=== PATIENT | female | born 1965 | race Caucasian/White ===

== ENCOUNTER 2019-03-01 10:03 | Emergency (ER) | payer BC ==
[2019-03-01 10:12] VITALS: TEMP 98.2
[2019-03-01] MEDS ORDERED: ONDANSETRON 4 MG/2 ML VIAL IVP STA (10:34)
[2019-03-01] MEDS ORDERED: diphenhydrAMINE 50 MG/ML 1 ML VIAL IVP STA ×2 (10:34→13:11)
[2019-03-01] MEDS ORDERED: SODIUM CHLORIDE 0.9% 2,000 ML IV ONE (10:34)
[2019-03-01] MEDS ORDERED: MAG HYDROX/AL HYDROX/SIMETH 30 ML, HYOSCYAMINE ELIXIR 10 ML, LIDOCAINE VISCOUS 2% 10 ML PO STA ×3 (10:58)
--- NOTE | 2019-03-01 11:18 | ED ---
General Adult HPI - General Chief complaint: Nausea/Vomiting/Diarrhea Stated complaint: vomiting Time Seen by Provider: 03/01/19 10:13 Source: patient, RN notes reviewed Mode of arrival: wheelchair Limitations: no limitations - History of Present Illness Initial comments: 53-year-old female presents emergency Department chief complaint nausea vomiting. Patient states she's had vomiting for last 2 weeks. Patient has extensive history of esophageal cancer with removal and reconstruction along with radiation. Patient states that she would have prognosis a 1 year to live. She states this was given to her 18 months ago. Patient states her oncology physician is out of for low. Patient states that at this point she cannot keep anything down she states she has extreme burning in her stomach and esophagus region. Patient denies fevers chills she does feel weak, run down. She has more pain in her epigastric region than her lower abdomen. She states that she had a hard bowel movement yesterday does not feel distended. Patient denies any sick contacts no fevers chills. - Related Data Previous Rx's Medication Instructions Recorded Metoclopramide [Reglan] 10 mg PO TID PRN #15 tab 03/01/19 Ondansetron Odt [Zofran Odt] 4 mg PO Q8HR PRN #10 tab 03/01/19 Allergies Allergy/AdvReac Type Severity Reaction Status Date / Time No Known Allergies Allergy Verified 03/01/19 10:08 Review of Systems ROS Statement: Those systems with pertinent positive or pertinent negative responses have been documented in the HPI. ROS Other: All systems not noted in ROS Statement are negative. Past Medical History History of Any Multi-Drug Resistant Organisms: None Reported Additional Past Surgical History / Comment(s): Oral surgery for oral cancer Past Psychological History: No Psychological Hx Reported Smoking Status: Never smoker Past Alcohol Use History: None Reported Past Drug Use History: None Reported General Exam Limitations: no limitations General appearance: alert, in no apparent distress Head exam: Present: atraumatic, normocephalic, normal inspection Eye exam: Present: normal appearance, PERRL, EOMI. Absent: scleral icterus, conjunctival injection, periorbital swelling ENT exam: Present: mucous membranes moist, TM's normal bilaterally, normal external ear exam. Absent: normal exam, normal oropharynx (Reconstructive deformities noted) Neck exam: Present: tenderness, full ROM. Absent: normal inspection Respiratory exam: Present: normal lung sounds bilaterally. Absent: respiratory distress, wheezes, rales, rhonchi, stridor Cardiovascular Exam: Present: regular rate, normal rhythm, normal heart sounds. Absent: systolic murmur, diastolic murmur, rubs, gallop, clicks GI/Abdominal exam: Present: soft, tenderness (Moderate epigastric), normal bowel sounds. Absent: distended, guarding, rebound, rigid Back exam: Absent: CVA tenderness (R), CVA tenderness (L) Skin exam: Present: warm, dry, intact, normal color. Absent: rash Course Vital Signs 03/01/19 10:05 Temperature 98.2 F Pulse Rate 105 H Respiratory 20 Rate Blood Pressure 141/91 O2 Sat by Pulse 98 Oximetry EKG Findings - EKG Comments: EKG Findings:: EKG performed at 11:03 normal sinus rhythm there is some T-wave inversions noted needs P2 through V5, rate of 95 SC 146 QRS 82 QTC is QTC 396/497 Medical Decision Making - Medical Decision Making Patient had extensive workup including labs urinalysis, x-rays and CT. Patient son recently dehydrated was hydrated with 2 L of fluid, given antiemetics. Patient had notable 10 mm on his mass. She was updated on these results. I did recommend patient to be admitted for IV hydration, evaluation by ENT, oncology. Patient refuses admission states that she wants to go back to [place] to follow- up with her oncologist there and her reconstructive team. Patient understands risk of leaving at this time including . Return parameters were discussed. - Lab Data Result diagrams: 03/01/19 12:40 03/01/19 12:40 Lab Results 03/01/19 03/01/19 03/01/19 Range/Units 12:28 12:40 12:40 WBC 9.0 (3.8-10.6) k/uL RBC 4.51 (3.80-5.40) m/uL Hgb 15.2 (11.4-16.0) gm/dL Hct 44.7 (34.0-46.0) % MCV 99.2 (80.0-100.0) fL MCH 33.7 (25.0-35.0) pg MCHC 33.9 (31.0-37.0) g/dL RDW 13.5 (11.5-15.5) % Plt Count 101 L (150-450) k/uL Neutrophils % 85 % Lymphocytes % 6 % Monocytes % 7 % Eosinophils % 1 % Basophils % 0 % Neutrophils # 7.6 (1.3-7.7) k/uL Lymphocytes # 0.6 L (1.0-4.8) k/uL Monocytes # 0.6 (0-1.0) k/uL Eosinophils # 0.1 (0-0.7) k/uL Basophils # 0.0 (0-0.2) k/uL Sodium 131 L (137-145) mmol/L Potassium 5.5 H (3.5-5.1) mmol/L Chloride 93 L (98-107) mmol/L Carbon Dioxide 12 L (22-30) mmol/L Anion Gap 26 mmol/L BUN 15 (7-17) mg/dL Creatinine 0.59 (0.52-1.04) mg/dL Est GFR (CKD-EPI)AfAm >90 (>60 ml/min/1.73 sqM) Est GFR (CKD-EPI)NonAf >90 (>60 ml/min/1.73 sqM) Glucose 109 H (74-99) mg/dL Plasma Lactic Acid Robinson (0.7-2.0) mmol/L Calcium 8.4 (8.4-10.2) mg/dL Magnesium 1.4 L (1.6-2.3) mg/dL Total Bilirubin 1.6 H (0.2-1.3) mg/dL AST 94 H (14-36) U/L ALT 68 H (4-34) U/L Alkaline Phosphatase 81 (38-126) U/L Troponin I (0.000-0.034) ng/mL Total Protein 9.4 H (6.3-8.2) g/dL Albumin 5.5 H (3.5-5.0) g/dL Amylase 56 (30-110) U/L Lipase 107 (23-300) U/L Urine Color Yellow Urine Appearance Clear (Clear) Urine pH 5.5 (5.0-8.0) Ur Specific [place] 1.018 (1.001-1.035) Urine Protein 1+ H (Negative) Urine Glucose (UA) Negative (Negative) Urine Ketones 4+ H (Negative) Urine Blood Trace H (Negative) Urine Nitrite Negative (Negative) Urine Bilirubin Negative (Negative) Urine Urobilinogen 2.0 (<2.0) mg/dL Ur Leukocyte Esterase Negative (Negative) Urine RBC 2 (0-5) /hpf Urine WBC <1 (0-5) /hpf Ur Squamous Epith Cells <1 (0-4) /hpf Urine Mucus Rare H (None) /hpf 03/01/19 03/01/19 Range/Units 12:40 12:40 WBC (3.8-10.6) k/uL RBC (3.80-5.40) m/uL Hgb (11.4-16.0) gm/dL Hct (34.0-46.0) % MCV (80.0-100.0) fL MCH (25.0-35.0) pg MCHC (31.0-37.0) g/dL RDW (11.5-15.5) % Plt Count (150-450) k/uL Neutrophils % % Lymphocytes % % Monocytes % % Eosinophils % % Basophils % % Neutrophils # (1.3-7.7) k/uL Lymphocytes # (1.0-4.8) k/uL Monocytes # (0-1.0) k/uL Eosinophils # (0-0.7) k/uL Basophils # (0-0.2) k/uL Sodium (137-145) mmol/L Potassium (3.5-5.1) mmol/L Chloride (98-107) mmol/L Carbon Dioxide (22-30) mmol/L Anion Gap mmol/L BUN (7-17) mg/dL Creatinine (0.52-1.04) mg/dL Est GFR (CKD-EPI)AfAm (>60 ml/min/1.73 sqM) Est GFR (CKD-EPI)NonAf (>60 ml/min/1.73 sqM) Glucose (74-99) mg/dL Plasma Lactic Acid Robinson 1.2 (0.7-2.0) mmol/L Calcium (8.4-10.2) mg/dL Magnesium (1.6-2.3) mg/dL Total Bilirubin (0.2-1.3) mg/dL AST (14-36) U/L ALT (4-34) U/L Alkaline Phosphatase (38-126) U/L Troponin I 0.014 (0.000-0.034) ng/mL Total Protein (6.3-8.2) g/dL Albumin (3.5-5.0) g/dL Amylase (30-110) U/L Lipase (23-300) U/L Urine Color Urine Appearance (Clear) Urine pH (5.0-8.0) Ur Specific [place] (1.001-1.035) Urine Protein (Negative) Urine Glucose (UA) (Negative) Urine Ketones (Negative) Urine Blood (Negative) Urine Nitrite (Negative) Urine Bilirubin (Negative) Urine Urobilinogen (<2.0) mg/dL Ur Leukocyte Esterase (Negative) Urine RBC (0-5) /hpf Urine WBC (0-5) /hpf Ur Squamous Epith Cells (0-4) /hpf Urine Mucus (None) /hpf Disposition Clinical Impression: Dehydration, Nausea & vomiting, Lesion of glottis Disposition: HOME SELF-CARE Condition: Stable Instructions (If sedation given, give patient instructions): Acute Nausea and Vomiting (ED) Additional Instructions: Please return to the Emergency Department if symptoms worsen or any other concerns. Prescriptions: Metoclopramide [Reglan] 10 mg PO TID PRN #15 tab PRN Reason: GERD Ondansetron Odt [Zofran Odt] 4 mg PO Q8HR PRN #10 tab PRN Reason: Nausea Is patient prescribed a controlled substance at d/c from ED?: No Referrals: Herbert Duffy DO [Primary Care Provider] - 1-2 days Time of Disposition: 14:52
--- NOTE | 2019-03-01 11:51 | XR ---
EXAMINATION TYPE: XR chest 2V DATE OF EXAM: 03/01/2019 COMPARISON: NONE HISTORY: Difficulty swallowing and chest pain. TECHNIQUE: Frontal and lateral views of the chest are obtained. FINDINGS: Overlying EKG leads. There is no focal air space opacity, pleural effusion, or pneumothorax seen. T he cardiac silhouette size is upper limits of normal. The osseous structures are intact. IMPRESSION: No acute cardiopulmonary process.
--- NOTE | 2019-03-01 11:52 | XR ---
EXAMINATION TYPE: XR KUB DATE OF EXAM: 03/01/2019 11:45 AM CLINICAL HISTORY: Pain with nausea and vomiting. TECHNIQUE: Two Upright KUB images of the abdomen are obtained. COMPARISON: None. FINDINGS: Some paucity of bowel gas. Scattered gas seen in nondistended small and large bowel loops. Large 6.8 cm calcification right lower sacrum presumed calcified fibroid. No pneumoperitoneum. Lung b ases are clear. Osseous structures are intact. IMPRESSION: Overall nonspecific strongly favor nonobstructive bowel gas pattern.
--- NOTE | 2019-03-01 11:54 | XR ---
EXAMINATION TYPE: XR soft tissue neck DATE OF EXAM: 03/01/2019 COMPARISON: NONE HISTORY: Difficulty swallowing, history of esophageal cancer. TECHNIQUE: 2 view soft tissue neck. FINDINGS: No suspicious prevertebral soft tissue swelling. Patency of the nasopharyngeal and orophary ngeal airways but the hypopharyngeal airway suspicious posterior round subcentimeter density just bel ow hyoid bone at C4-C5 disc space level. This is less well seen on frontal projection. Multiple surgi yanique clips overlie the bilateral neck. IMPRESSION: As above. Suspect partially obstructing mucosal mass posterior aspect hypopharyngeal airw ay. Contrast-enhanced neck CT can be performed to further evaluate.
[2019-03-01 12:48] LABS: Appearance,Urine Clear (Clear); Bilirubin,Urine Negative (Negative); Blood,Urine Trace (Negative); Color,Urine Yellow; Glucose,Urine (UA) Negative (Negative); Ketones,Urine 4+ (Negative); Leukocyte Esterase,Urine Negative (Negative); Mucus,Urine Rare /hpf; Nitrite,Urine Negative (Negative); PH, Urine 5.5 (5.0-8.0); Protein,Urine 1+ (Negative); RBC,Urine 2 /hpf (0-5); Specific Gravity,Urine 1.018 (1.001-1.035); Squamous Epithelial Cell,Urine <1 /hpf (0-4); WBC,Urine <1 /hpf (0-5)
[2019-03-01 12:58] LABS: ALT 68 U/L (4-34); AST 94 U/L (14-36); African American GFR (CKD) >90 (>60 ml/min/1.73 sqM); Albumin 5.5 g/dL (3.5-5.0); Alkaline Phosphatase 81 U/L (38-126); Amylase 56 U/L (30-110); Anion Gap 26 mmol/L; Blood Urea Nitrogen 15 mg/dL (7-17); Calcium 8.4 mg/dL (8.4-10.2); Carbon Dioxide 12 mmol/L (22-30); Chloride 93 mmol/L (98-107); Glucose 109 mg/dL (74-99); Magnesium 1.4 mg/dL (1.6-2.3); Non-African American GFR(CKD) >90 (>60 ml/min/1.73 sqM); Potassium 5.5 mmol/L (3.5-5.1); Sodium 131 mmol/L (137-145); Total Bilirubin 1.6 mg/dL (0.2-1.3); Total Protein 9.4 g/dL (6.3-8.2)
[2019-03-01 13:02] LABS: Basophils % (A) 0 %; Eosinophils # (A) 0.1 k/uL (0-0.7); Eosinophils % (A) 1 %; HCT 44.7 % (34.0-46.0); HGB 15.2 gm/dL (11.4-16.0); Lymphocytes # (A) 0.6 k/uL (1.0-4.8); Lymphocytes % (A) 6 %; MCH 33.7 pg (25.0-35.0); MCHC 33.9 g/dL (31.0-37.0); MCV 99.2 fL (80.0-100.0); Mean Platelet Volume 9.4; Monocytes # (A) 0.6 k/uL (0-1.0); Monocytes % (A) 7 %; Neutrophils # (A) 7.6 k/uL (1.3-7.7); Neutrophils % (A) 85 %; Platelet Count 101 k/uL (150-450); RBC 4.51 m/uL (3.80-5.40); RDW 13.5 % (11.5-15.5)
[2019-03-01] MEDS ORDERED: METOCLOPRAMIDE 5 MG/ML 2 ML VIAL IVP STA (13:11)
[2019-03-01] MEDS ORDERED: FAMOTIDINE 20 MG/2 ML VIAL IV STA (13:11)
--- NOTE | 2019-03-01 14:33 | CT ---
EXAMINATION TYPE: CT soft tissue neck w con DATE OF EXAM: 03/01/2019 COMPARISON: None HISTORY: Vomiting, hx of esophageal CA CT DLP: 252.2 mGycm Automated exposure control for dose reduction was used. CONTRAST: Performed with IV Contrast, patient injected with 100 mL of Isovue 300. Superior mediastinum appears normal. Thyroid gland is fairly symmetric. There is normal contrast opac ification of the carotid and vertebral arteries. There is opacification of the jugular veins. Epiglot tis appears normal. Parotid glands are symmetric. Submandibular salivary glands show bilateral atroph y or resection. There are surgical clips at the angle of the mandible bilaterally. Adenoids appear no rmal. Tonsils are not enlarged. There is small amount of air in the cervical esophagus. There is mild thickening of the soft tissues at the posterior aspect of the glottis.. I see no soft t issue air. There is no evidence of bony destructive process. I see no pathologic enhancement. There are spondylotic changes in the cervical spine. There is disc space narrowing in the lower cervi yanique spine. IMPRESSION: Mild soft tissue swelling or thickening at the posterior aspect of the glottis. This measures 10 mm i n thickness. Laryngoscopy correlation is recommended. Postsurgical changes with apparent resection of the submandibular salivary glands.
[2019-03-01] MEDS ORDERED: DEXAMETHASONE SOD PHOSPHATE 10 MG/ML 1 ML VIAL IV STA (14:49)
[2019-03-01 15:20] VITALS: BP 133/75; PULSE 90; RESP 16
== END 2019-03-01 15:24 | disposition home or self-care (01) ==
LOC: EC 10:03
DX: E86.0 Dehydration (principal); J38.7 Other diseases of larynx; R11.2 Nausea with vomiting, unspecified; R10.13 Epigastric pain; Z85.01 Personal history of malignant neoplasm of esophagus; Z92.3 Personal history of irradiation; Z98.890 Other specified postprocedural states; Z53.29 Procedure and treatment not carried out because of patient's decision for other reasons
CPT/HCPCS: 99284; 96374; 96375 ×3; 96376; 96361 ×2; 36415; 93005; 80053; 82150; 83605; 83690; 83735; 84484; 85025; 81001; 70360; 71046; 74018; 70491; J1200; J2765; J2405; Q9967